=== PATIENT | female | born 1940 | race Caucasian/White ===

== ENCOUNTER → 2024-05-31 | Outpatient (CLI) | payer SELFPAY ==
[2024-05-31 12:17] LABS: INR 1.3 (<1.2); Partial Thromboplastin Time 31.6 sec (22.0-30.0); Prothrombin Time 13.5 sec (10.0-12.5)
[2024-05-31 15:06] LABS: HCT 47.9 % (37.2-46.3); HGB 15.6 g/dL (12.0-15.0); MCH 35.7 pg (27.0-32.0); MCHC 32.6 g/dL (32.0-37.0); MCV 109.6 FL (80.0-97.0); Mean Platelet Volume 10.5 FL (9.5-12.2); NRBC Per 100 WBC 0 X 10*3/uL (0.00-0.01); Platelet Count 474 X 10*3/uL (140-440); RBC 4.37 X 10*6/uL (4.10-5.20); RDW 14.1 % (11.5-14.5); WBC 7.98 X 10*3/uL (4.50-10.00)
[2024-05-31 15:34] LABS: ALT 9 U/L (8-44); AST 20 U/L (13-35); Albumin 4.2 g/dL (3.8-4.9); Alkaline Phosphatase 74 U/L (41-126); Blood Urea Nitrogen 20.6 mg/dL (9.0-27.0); Calcium 9.5 mg/dL (8.7-10.3); Carbon Dioxide 23.7 mmol/L (21.6-31.8); Chloride 106 mmol/L (96-109); Globulin 2.8 g/dL (1.6-3.3); Glucose 90 mg/dL (70-110); Potassium 4.4 mmol/L (3.5-5.5); Sodium 142 mmol/L (135-145); Total Bilirubin 0.9 mg/dL (0.3-1.2)
== END | disposition home or self-care (01) ==
LOC: LABPAT 11:14
PROVIDERS: ATTEND Orthopaedic Surgery
DX: Z01.812 Encounter for preprocedural laboratory examination (principal); M16.11 Unilateral primary osteoarthritis, right hip; Z22.322 Carrier or suspected carrier of Methicillin resistant Staphylococcus aureus
CPT/HCPCS: 80053; 85027; 85610; 85730; 86850; 86900; 86901; 87070

== ENCOUNTER 2024-06-08 07:22 | Day surgery (SDC) | payer MEDICARE ==
[~2024-06-08 07:22] MED LIST: TRANEXAMIC 1,000 MG/100ML-NACL 1,000 MG in SALINE 1 100ML.BAG IVPB PRN
[2024-06-08] MEDS: IV FLUID CONTINUATION 1,000 ML IV ONE (08:13)
[2024-06-08] MEDS: MELOXICAM 7.5 MG TAB PO PRN (08:25)
[2024-06-08] MEDS: ONDANSETRON 4 MG/2 ML VIAL IVP ONE (08:25)
[2024-06-08] MEDS: DEXAMETHASONE SOD PHOSPHATE 4 MG/ML 1 ML VIAL IV ONE (08:25)
[2024-06-08] MEDS: ACETAMINOPHEN TAB 500 MG TAB PO PRN (08:25)
[2024-06-08] MEDS: GABAPENTIN 300 MG CAP PO PRN (08:25)
[2024-06-08] MEDS: MIDAZOLAM 2 MG/2 ML VIAL IV PRN (08:37)
--- NOTE | 2024-06-08 08:46 | P.ANPRN ---
Procedure Note - Anesthesia - Nerve Block Performed Right Rogerio Single Time Out Performed: Yes Date of Procedure: 06/08/24 Procedure Start Time: 08:37 Procedure Stop Time: 08:42 Location of Patient: PreOp Indication: Acute Post-Operative Pain, Analgesia, Requested by Surgeon Sedation Type: Sedate with meaningful contact maintained Preparation: Sterile Prep Position: Supine Catheter: None Needle Types: Pajunk Needle Gauge: 21 Ultrasound used to visualize needle placement: Yes Ultrasound used to observe medication spread: Yes Injectate: 0.5% Ropivacaine (see comment for volume) (Ropiv 20ml) Blood Aspirated: No Pain Paresthesia on Injection Noted: No Resistance on Injection: Normal Image Stored and Saved: Yes Events: Uneventful and Well Tolerated
[2024-06-08] MEDS ORDERED: HYDROmorphone 0.5 MG/0.5 ML SYRINGE IVP PRN ×3 (09:05)
[2024-06-08] MEDS ORDERED: NALOXONE 0.4 MG/ML 1 ML VIAL IV PRN (09:05)
[2024-06-08] MEDS ORDERED: MAGNESIUM HYDROXIDE 2,400 MG/30 ML CUP PO PRN (09:05)
[2024-06-08] MEDS ORDERED: HYDROcodone/APAP 7.5-325MG 1 EACH TAB PO PRN (09:07)
[2024-06-08] MEDS ORDERED: GLYCOPYRROLATE 0.2 MG/ML 2 ML VIAL ONE (09:21)
[2024-06-08] MEDS ORDERED: LIDOCAINE 1% INJ 10MG/ML (20 ML MDV) ONE (09:21)
[2024-06-08] MEDS ORDERED: NEOSTIGMINE 1 MG/ML 10 ML VIAL ONE (09:21)
[2024-06-08] MEDS ORDERED: ROCURONIUM 10 MG/ML (5 ML VIAL) IV ONE (09:21)
[2024-06-08] MEDS ORDERED: fentaNYL (PF) 50 MCG/ML 2 ML AMP ONE (09:21)
[2024-06-08] MEDS ORDERED: ROPIVACAINE 5 MG/ML 30 ML VIAL ONE (09:21)
[2024-06-08] MEDS ORDERED: PROPOFOL 10 MG/ML 20 ML VIAL IV ONE (09:21)
[2024-06-08] MEDS ORDERED: SUCCINYLCHOLINE CHLORIDE 200 MG/10 ML VIAL IV ONE (09:21)
[2024-06-08] MEDS ORDERED: TRANEXAMIC 1,000 MG/100ML-NACL PREMIX BAG ONE (09:21)
[2024-06-08] MEDS ORDERED: PHENYLEPHRINE-0.9% NACL SYG 1,000 MCG/10 ML SYRINGE ONE (09:21)
[2024-06-08] MEDS: ceFAZolin 1,000 MG in SODIUM CHLORIDE 0.9% 1,000 ML IRRIGATION ONE (09:26)
[2024-06-08] MEDS: ROPIVACAINE 5 MG/ML 30 ML VIAL MISCELLANE ONE ×2 (09:32→10:36)
[2024-06-08] MEDS: LACTATED RINGERS 1,000 ML IV ONE (10:28)
--- NOTE | 2024-06-08 10:43 | P.OP ---
Date of Procedure: 06/08/24 Preoperative Diagnosis: Severe osteoarthritis right hip Postoperative Diagnosis: Severe osteoarthritis right hip Procedure(s) Performed: Right total hip arthroplasty with a direct anterior approach Implants: [employer] Polarstem standard size 7 with a collar [employer] R3, 3 hole hemispherical acetabular shell, 50 mm [employer] Reflection 6.5 mm cancellus screw, 20 mm 2 [employer] R3, XLPE 20 acetabular liner [employer] Oxinium femoral head 36 mm, +0 All components were press-fit. The articulation is Oxinium on polyethylene. Anesthesia: spinal Surgeon: Brock Gonsalves Telephone Ad Taker #1: Any Douglas Estimated Blood Loss (ml): 550 Pathology: none sent Condition: stable Disposition: PACU Indications for Procedure: After failure of conservative treatment we discussed the surgical and nonsu rgical treatment options at length. Patient wishes to proceed with a total hip arthroplasty with a direct anterior approach. Complications specific to this procedure were discussed at length, including but not limited to infection, leg length discrepancy, dislocation, nerve injury, and fracture. Covid-19 was also discussed at length with the patient, and they are aware of the current policies and procedures. The patient was given the option of delaying surgery, but they elect to proceed knowing these risks. Patient is aware of all these complications and informed consent was obtained Operative Findings: The operative findings are consistent with severe osteoarthritis of the right hip Description of Procedure: The patient was seen and evaluated in the preoperative area and the consent was reviewed. The operative site was marked with a skin marker. The patient verified the procedure and operative site. A MARISA block was placed by anesthesia in the preoperative area. The patient was then brought to the operating room and given preoperative antibiotics intravenously. 1 g of Tranexamic acid was also given intravenously. A spinal anesthetic was administered by the anesthesia department. The patient was then placed on the [place] table with the bony prominences well-padded. The hip area was then prepped with a ChloraPrep solution and draped in the usual sterile fashion. A universal timeout was then performed, which confirmed the patient's name, surgical site, ALLERGIES, and procedure being performed on the consent. Next the incision site was located at 1 cm distal and 4 cm lateral to the anterior superior iliac spine. The skin and subcutaneous tissues were sharply incised. Incision was carefully dissected down to the fascia overlying the tensor fascia stephanie muscle. This fascia was then incised in line with the muscle fibers. Care was taken to stay laterally in order to avoid injuring the lateral femoral cutaneous nerve. Next, using blunt finger dissection, the tensor fascia stephanie muscle was dissected off its investing fascia. The muscle was then carefully retracted laterally with a cobra retractor over the lateral neck of the femur. Next, the circumflex vessels were identified and cauterized using the Aquamantis device. The anterior hip capsule was then exposed. The capsule was then opened and an inverted T fashion. The retractors were then placed intracapsularly. The retractors were maintained intracapsular throughout the procedure. The proximal femur was then visualized. Fluoroscopic x-rays were then taken in order to evaluate the preoperative leg lengths. A small amount of traction was placed on the leg. The femoral neck was then osteotomized at the appropriate level above the lesser trochanter. A small wedge of bone was then removed from the remaining femoral head. Next, using a corkscrew the femoral head was removed from the acetabulum. On gross visual inspection, the femoral head had complete loss of articular cartilage and multiple periarticular osteophytes. The femoral head was then measured. Attention was then turned to the acetabulum. The acetabulum was exposed and any remaining labrum was excised. Sequential reaming of the acetabulum was performed using fluoroscopic guidance until there was a good bed of bleeding cancellus bone. When the appropriate size was reached, a trial was then placed. The position and fit of the trial was checked with fluoroscopy. The trial was then removed. Then, using fluoroscopic guidance, the final implant was impacted at 20 of anteversion and 40 of abduction, and fully seated in the acetabulum. 2 screws were then placed in the acetabulum. Again fluoroscopy was used to check position of the screws. Next, the liner was then impacted, with a 20 elevated liner located in the anterior superior quadrant. Component locking was confirmed. Attention was then directed to the femur. With the aid of the [place] table, the femur was externally rotated to approximately 130, extended, and adducted under the opposite leg. A side hook was then placed under the proximal femur, and the side hook elevator was used to elevate the proximal femur while releasing the capsule. Retractors were then placed. A capsular release was performed, as well as a release of the conjoined tendon, which afforded excellent v isualization of the proximal femur. Next, a box osteotome was used to lateralize the proximal femur. A shorthand reporter was then used to locate the femoral canal. Sequential broaching was then performed with appropriate size which afforded excellent fixation in the proximal femur. A trial was then placed with appropriate head and neck, and the hip was gently reduced with the aid of the [place] table. Fluoroscopy was then used to check position of the components, as well as to evaluate the leg lengths and offset. The leg lengths and offset were measured as closely as possible to ensure stability of the hip. The hip was then gently dislocated and the trials were then removed. Final implants were then impacted and the hip was again reduced. Final fluoroscopic x-rays confirmed that the components were in anatomic position. The leg lengths and offset were measured and were found to coincide with the trial measurements. The hip was also taken through range of motion, and found to be stable. The hip was then copiously irrigated with antibiotic solution with pulsatile lavage. The hip was then irrigated with Irrisept solution. The soft tissues were then injected with a ropivacaine solution. A second dose of 1 g of Tranexamic acid was also given intravenously. The fascia was then closed with 2-0 strata fix suture. The subcutaneous tissue was closed with 3-0 Vicryl. The subcuticular tissue was closed with 3-0 strata fix suture. The skin was then closed with Exofin skin glue. After the glue and dried, and Optifoam silver impregnated dressing was applied. The patient was t hen transferred to the recovery room in stable condition. The clinical trials assistant JESUS Macdonald was required due to the complexity of surgery, and the need for skilled maintenance assistant for positioning, draping, exposure, retraction, and closure of the wound.
[2024-06-08] MEDS: HYDROmorphone 0.5 MG/0.5 ML SYRINGE IVP PRN (11:20)
--- NOTE | 2024-06-08 11:57 | FL ---
EXAMINATION TYPE: FL guidance operating room, XR Hip Limited RT Intraoperative/procedural fluoroscopi c services were provided. Total fluoroscopy time is 37 seconds with a total of 3 submitted images to PACS. Please see the operative/procedural note for further details. DAP: 1.3795 Gycm2
--- NOTE | 2024-06-08 11:58 | XR ---
EXAMINATION TYPE: XR Hip Limited RT DATE OF EXAM: 06/08/2024 11:28 AM CLINICAL INDICATION:Female, 83 years old with history of Status post hip surgery, assess surgical ali gnment; [facility] COMPARISON: None. TECHNIQUE: XR Hip Limited RT; hip was examined in the frontal projections FINDINGS: Post arthroplasty changes, hardware is intact, alignment is appropriate. No evidence of fra cture. Postoperative changes of the soft tissues with subcutaneous gas. No evidence of any acute osse ous pathology or joint dislocation. IMPRESSION: Hip arthroplasty with hardware intact and in appropriate alignment. No acute fracture.
[2024-06-08] MEDS: LACTATED RINGERS 1,000 ML IV SCH (15:04)
[2024-06-08] MEDS: SODIUM CHLORIDE 0.9% 1,000 ML IV SCH (15:22)
[2024-06-08] MEDS: ONDANSETRON 4 MG/2 ML VIAL IVP PRN (15:49)
[2024-06-08] MEDS: ATORVASTATIN 10 MG TAB PO SCH (21:04)
[2024-06-08] MEDS: SENNOSIDES-DOCUSATE SODIUM 1 EACH TAB PO SCH (21:04)
[2024-06-08] MEDS: atenoloL 50 MG TAB PO SCH (21:04)
--- NOTE | 2024-06-08 23:58 | P.CONS ---
History of Present Illness - Reason for Consult Consult date: 06/08/24 Medical management Requesting physician: Brock Gonsalves - Chief Complaint Right total hip arthroplasty - History of Present Illness HISTORY OF PRESENT ILLNESS: 83-year-old with active medical history of polycythemia, hypertension, hyperlipidemia, osteoporosis, hypothyroidism, low vitamin D, paroxysmal A-fib, recurrent urinary tract infection, and mild palpitation. Patient been having significant pain and discomfort irritation and limping for the last 2 years become much worse had tried conservative management last year which had helped for short period of time continue to have significant pain and discomfort. Was seen Dr. Gonsalves and plan elective anterior approach right total hip arthroplasty which was done today successfully with no major complication patient has slight delayed reaction to conscious sedation otherwise pain is well-controlled when seen over 4 hours after surgery continue to have slight slurred speech and mild confusion only she is not combative otherwise stable. REVIEW OF SYSTEMS: CONSTITUTIONAL: Well-developed no acute respiratory distress. EYES: No icterus sclerae, no conjunctivitis. EARS, NOSE, MOUTH, THROAT, and FACE: No sore throat, lymphadenopathy, carotid bruits or deformity. RESPIRATORY: No SOB cough or wheezes. CARDIOVASCULAR: No CP, Palpitation, PND, Orthopnea, or angina. Positive A-fib GASTROINTESTINAL: No Abd pain, Nausea or vomiting, no Diarrhea or constipation, No GI Bleed, no distention or masses. GENITOURINARY: Negative for Hematuria or UTI, no kidney stones. INTEGUMENT/BREAST: Negative for any muscular injury with mild osteoarthritis.. Skin cancer on the left leg. HEMATOLOGIC/LYMPHATIC: Negative for bleed or purpura. MUSCULOSKELTAL: Negative for Myalgia or arthralgia. NEURLOGICAL: No LOC, Sz or syncope, blurred vision dizziness or abnormality.. BEHAVIORAL/PSYCH: Negative. ENDOCRINE: Negative. PHYSICAL EXAMINATION: General Appearance: Alert, cooperative, no distress, appears stated age. Neck HEENT: Supple, no lymphadenopathy, no thyroid enlargement, no carotid bruits. Lungs: Clear to auscultation without crackles or wheezes no rhonchi, no deformity. Chest Wall: Chest wall normal expansion with deep inspiration no tenderness and no deformity was found on exam, no costochondral pain or discomfort. Heart: Irregular rate and rhythm, S1, S2 positive S3 positive systolic murmur. Back: Symmetric, no curvature, ROM normal, no CVA tenderness. Abdomen: Soft, non-tender, bowel sounds active all four quadrants, no masses, no organomegaly. Extremities: Right hip anterior approach incision with no bleeding hemorrhage induration or redness no hematoma. Pulses: 2+ and symmetric. Skin: Skin color, texture, tugor normal, no rashes or lesions. Neurologic: Alert oriented x3 cranial nerves II through XII intact, no motor deficit, no abnormal balance or gait. ASSESSMENT AND PLAN: _Right total hip arthroplasty: Postsurgery resume all home meds, GI, DVT and pulmonary prophylaxis protocol. Watch patient hemodynamic status carefully and control pain and with her confusion to use help with any attempt but patient need to be out of bed. _History of polycythemia: Post phlebotomy 3 times a year and remain on hydroxyurea. _Paroxysmal atrial fibrillation: Remain on Xarelto has been on atenolol and nifedipine resume medication Xarelto will be resumed tomorrow at 20 mg daily. _Chronic kidney disease: Mostly stage II, continue hydration repeat CMP with blood work tomorrow. _Hypothyroidism: Resume levothyroxine 100 mcg daily. _Hyperlipidemia: Continue simvastatin 20 mg a day. _Anticoagulation: Remain on Xarelto 20 mg a day. _Vitamin D deficiency: Continue calcium and vitamin D more regular basis. _Osteoporosis: Remain on alendronate 70 mg weekly to start calcium vitamin D. _Skin cancer most likely basal cell carcinoma of the left leg arrangement to see dermatology for resection in the next few months. _GERD/GI prophylaxis: Continue Pepcid 20 mg daily. _DVT prophylaxis: Patient already on Xarelto. CODE STATUS: Full code. Dr. Gonsalves thank you much for the consult if I can be any further help to please let me know. Past Medical History Past Medical History: Atrial Fibrillation, Cancer, Hyperlipidemia, Hypertension, Skin Disorder, Thyroid Disorder Additional Past Medical History / Comment(s): skin cancer face 1998, basal cell back, bilat. leg skin cancer, polycythemia vera 2012, hypothyroidism - took oral radiation pill 2007 to cease thyroid function, a fib since 2021 rate controlled History of Any Multi-Drug Resistant Organisms: None Reported Additional Past Surgical History / Comment(s): bilat. CTR, skin cancer removal face, back, bilat. legs, bilat.cataracts, colonoscopy, ganglion cyst removal Lt. foot, Total right hip Additional Past Anesthesia/Blood Transfusion Reaction / Comm: 1998 - "paralyzed" during facial skin cancer removal Past Psychological History: No Psychological Hx Reported Smoking Status: Never smoker Past Alcohol Use History: None Reported Past Drug Use History: None Reported - Past Family History Mother Family Medical History: Coronary Artery Disease (CAD), Hypertension, Myocardial Infarction (NE) Father Family Medical History: Coronary Artery Disease (CAD), Hypertension, Myocardial Infarction (NE) Medications and Allergies Home Medications Medication Instructions Recorded Confirmed Type Alendronate Sodium 70 mg PO WEEKLY 06/02/24 06/08/24 History Benazepril HCl [Lotensin] 40 mg PO QAM 06/02/24 06/08/24 History Cholecalciferol (Vitamin D3) 1 tab PO Q14D 06/02/24 06/08/24 History [Vitamin D3 (1250 Mcg = 50,000 Iu)] Hydroxyurea [Hydrea] 500 mg PO QAM 06/02/24 06/08/24 History Levothyroxine Sodium [Synthroid] 100 mcg PO MOTUWETHFRSA 06/02/24 06/08/24 History NIFEdipine XL [Procardia Xl] 30 mg PO QAM 06/02/24 06/08/24 History Potassium Chloride 10 meq PO QAM 06/02/24 06/08/24 History Rivaroxaban [Xarelto] 20 mg PO HS 06/02/24 06/08/24 History Simvastatin [Zocor] 20 mg PO HS 06/02/24 06/08/24 History atenoloL [Tenormin] 50 mg PO BID 06/02/24 06/08/24 History HYDROcodone/APAP 7.5-325MG [[place] 1 - 2 tab PO Q6H PRN #32 tab 06/08/24 Rx 7.5-325] Sennosides [Senokot] 2 tab PO DAILY PRN #60 tablet 06/08/24 Rx Allergies Allergy/AdvReac Type Severity Reaction Status Date / Time propoxyphene [From Darvon] Allergy Hallucinati Verified 06/08/24 08:02 ons Sulfa (Sulfonamide Allergy Rash/Hives Verified 06/08/24 08:02 Antibiotics) adhesive tape AdvReac Rash/Hives Verified 06/08/24 08:02 Physical Exam Vitals: Vital Signs Temp Pulse Pulse Resp BP Pulse Ox 06/08/24 15:25 97.5 F L 62 18 124/79 96 06/08/24 14:45 68 15 103/59 99 06/08/24 14:15 67 16 105/64 97 06/08/24 13:45 61 16 102/73 98 06/08/24 13:15 65 17 104/64 100 06/08/24 12:45 61 16 98/64 100 06/08/24 12:15 75 16 97/60 100 06/08/24 12:00 67 17 99/54 100 06/08/24 11:45 66 15 102/62 99 06/08/24 11:30 74 21 104/66 99 06/08/24 11:15 67 16 105/68 100 06/08/24 11:06 97.4 F L 95 15 124/74 100 06/08/24 08:47 67 16 152/89 99 06/08/24 08:14 97.4 F L 73 16 160/86 98 Intake and Output 06/08/24 06/08/24 06/08/24 06:59 14:59 22:59 Intake Total 1051 Output Total 550 Balance 501 Intake: IV 1051 Output: Estimated Blood Loss 550 Other: Weight 64.3 kg
[2024-06-09 01:58] VITALS: PULSE 62
[2024-06-09] MEDS: HYDROcodone/APAP 7.5-325MG 1 EACH TAB PO PRN (05:04)
[2024-06-09] MEDS: LEVOTHYROXINE 100 MCG TAB PO SCH (06:37)
[2024-06-09] MEDS: POTASSIUM CHLORIDE ER 10 MEQ TAB.ER.PRT PO SCH (07:30)
[2024-06-09] MEDS: FAMOTIDINE 20 MG TAB PO SCH (07:30)
[2024-06-09] MEDS: lisinopriL 20 MG TAB PO SCH (07:31)
[2024-06-09] MEDS: ASPIRIN 81 MG PO SCH (07:31)
[2024-06-09] MEDS: NIFEdipine XL 30 MG TAB.ER.24 PO SCH (07:32)
[2024-06-09] MEDS: HYDROXYUREA 500 MG CAP PO SCH (07:33)
[2024-06-09 07:57] VITALS: BP 116/73; RESP 20; TEMP 98.4
[2024-06-09 08:52] LABS: Basophils # (A) 0.04 X 10*3/uL (0.00-0.10); Basophils % (A) 0.4 %; Eosinophils # (A) 0.01 X 10*3/uL (0.04-0.35); Eosinophils % (A) 0.1 %; HCT 31.9 % (37.2-46.3); HGB 10.7 g/dL (12.0-15.0); Lymphocytes # (A) 1.28 X 10*3/uL (0.90-5.00); Lymphocytes % (A) 11.5 %; MCH 36.6 pg (27.0-32.0); MCHC 33.5 g/dL (32.0-37.0); MCV 109.2 FL (80.0-97.0); Mean Platelet Volume 11.1 FL (9.5-12.2); Monocytes # (A) 1.14 X 10*3/uL (0.20-1.00); Monocytes % (A) 10.3 %; NRBC Per 100 WBC 0 X 10*3/uL (0.00-0.01); Neutrophils # (A) 8.58 X 10*3/uL (1.80-7.70); Neutrophils % (A) 77.2 %; Platelet Count 238 X 10*3/uL (140-440); RBC 2.92 X 10*6/uL (4.10-5.20); RDW 14.6 % (11.5-14.5); WBC 11.11 X 10*3/uL (4.50-10.00)
--- NOTE | 2024-06-09 09:57 | P.DS ---
Providers Expected date of discharge: 06/09/24 Attending physician: Brock Gonsalves Consults: 06/08/24 09:05 Consult Physician Routine Consulting Provider: Krishna Rocha Reason/Comments: medical management Do you want consulting provider notified?: Yes Primary care physician: Krishna Rocha - Discharge Diagnosis(es) (1) Osteoarthritis of right hip Current Visit: Yes Status: Acute (2) S/P total hip arthroplasty Current Visit: Yes Status: Acute Hospital Course: This is an 83-year-old female with known history of degenerative arthritis of the right hip. The patient presented for evaluation as an outpatient. After discussion and consideration patient elects to proceed with total hip arthroplasty. The patient is seen preoperatively by Dr. Gonsalves and medically cleared for surgery by their primary care physician. Patient is admitted to [facility] on 06/08/2024 for total hip arthroplasty. The procedure is performed without complication or sequelae. The patient is doing well postoperatively. Labs and vital signs are stable on day of discharge. On day of discharge patient's hip incision is healing well. There is minimal erythema. There is no drainage noted at this time. There is minimal soft tissue swelling to the hip and thigh. Patient has full foot and ankle motion without difficulty or pain. Calf is soft and nontender to palpation. Neurovascular status to the right lower extremity is intact. Patient is d ischarged home in good condition. Osteoarthritis right hip please see med rec for accurate list of home medications. Plan - Discharge Summary Discharge Rx Participant: Yes New Discharge Prescriptions: New HYDROcodone/APAP 7.5-325MG [[place] 7.5-325] 1 - 2 tab PO Q6H PRN #32 tab PRN Reason: Pain Sennosides [Senokot] 2 tab PO DAILY PRN #60 tablet PRN Reason: Constipation No Action Simvastatin [Zocor] 20 mg PO HS Rivaroxaban [Xarelto] 20 mg PO HS Levothyroxine Sodium [Synthroid] 100 mcg PO MOTUWETHFRSA Hydroxyurea [Hydrea] 500 mg PO QAM Alendronate Sodium 70 mg PO WEEKLY atenoloL [Tenormin] 50 mg PO BID Potassium Chloride 10 meq PO QAM NIFEdipine XL [Procardia Xl] 30 mg PO QAM Benazepril HCl [Lotensin] 40 mg PO QAM Cholecalciferol (Vitamin D3) [Vitamin D3 (1250 Mcg = 50,000 Iu)] 1 tab PO Q14D Discharge Medication List Alendronate Sodium 70 mg PO WEEKLY 06/02/24 [History] Benazepril HCl [Lotensin] 40 mg PO QAM 06/02/24 [History] Cholecalciferol (Vitamin D3) [Vitamin D3 (1250 Mcg = 50,000 Iu)] 1 tab PO Q14D 06/02/24 [History] Hydroxyurea [Hydrea] 500 mg PO QAM 06/02/24 [History] Levothyroxine Sodium [Synthroid] 100 mcg PO MOTUWETHFRSA 06/02/24 [History] NIFEdipine XL [Procardia Xl] 30 mg PO QAM 06/02/24 [History] Potassium Chloride 10 meq PO QAM 06/02/24 [History] Rivaroxaban [Xarelto] 20 mg PO HS 06/02/24 [History] Simvastatin [Zocor] 20 mg PO HS 06/02/24 [History] atenoloL [Tenormin] 50 mg PO BID 06/02/24 [History] HYDROcodone/APAP 7.5-325MG [[place] 7.5-325] 1 - 2 tab PO Q6H PRN #32 tab 06/08/24 [Rx] Sennosides [Senokot] 2 tab PO DAILY PRN #60 tablet 06/08/24 [Rx] Follow up Appointment(s)/Referral(s): Brock Gonsalves DO [Doctor of Osteopathic Medicine] - 2 Weeks Activity/Diet/Wound Care/Special Instructions: Weightbearing as tolerated with walker. Leave dressing intact. Dressing may be removed by home care nurse or by patient in 7 days. Then change dressing twice daily until follow up. May shower with initial dressing intact and after removal. If dressing become saturated, please remove. Please resume Xarelto and aspirin. Recommend use of compression stockings daily until follow up to help prevent swelling and blood clots. May remove at night before sleeping. Please follow-up with [facility] in 2 weeks and call with any questions or concerns, . Discharge Disposition: HOME WITH HOME HEALTH SERVICES
[2024-06-09] MEDS ORDERED: RIVAROXABAN 20 MG TAB PO SCH (17:30)
[2024-06-18] MEDS ORDERED: CHOLECALCIFEROL 125 MCG (5000 IU) TABLET PO SCH (09:00)
== END 2024-06-09 12:45 | disposition home health service (06) ==
LOC: ORWHC2ENDO 07:22 → 4SSUR 10:59 → ORWHC2ENDO 06-09 12:45
PROVIDERS: ATTEND Orthopaedic Surgery
DX: M16.11 Unilateral primary osteoarthritis, right hip (principal); G89.18 Other acute postprocedural pain; I12.9 Hypertensive chronic kidney disease with stage 1 through stage 4 chronic kidney disease, or unspecified chronic kidney disease; N18.2 Chronic kidney disease, stage 2 (mild); E78.5 Hyperlipidemia, unspecified; E03.9 Hypothyroidism, unspecified; I48.0 Paroxysmal atrial fibrillation; E55.9 Vitamin D deficiency, unspecified; M81.0 Age-related osteoporosis without current pathological fracture; Z79.01 Long term (current) use of anticoagulants; Z79.890 Hormone replacement therapy; Z79.899 Other long term (current) drug therapy; Z85.828 Personal history of other malignant neoplasm of skin; Z88.2 Allergy status to sulfonamides; Z88.8 Allergy status to other drugs, medicaments and biological substances
CPT/HCPCS: 97161; 64447; 85025; 73501; 27130; C1776; S0176; J2250; J0330; J1100; J2710; J0690 ×3; J2405 ×2; J2001; J3010; J2795; J2704; J1170; J2371; J1596

== ENCOUNTER 2025-06-27 23:32 | Emergency (ER) | payer MEDICARE ==
[2025-06-27 23:52] VITALS: RESP 18; TEMP 97.6
--- NOTE | 2025-06-27 23:52 | ED ---
Extremity Problem HPI - General Chief complaint: Extremity Injury, Lower Stated complaint: left leg swollen Time Seen by Provider: 06/27/25 23:49 Source: patient, RN notes reviewed, old records reviewed Mode of arrival: wheelchair Limitations: no limitations - History of Present Illness Initial comments: This is an 84-year-old female to ER for leg pain left-sided leg pain worse after dentist appointment where she had tooth extraction today. Patient has significant pain in the left hip left thigh which is chronic. Patient is able to walk and ambulate pain is better when she leans forward he has a chronic effusion patient seen multiple providers and pain management symptoms for MD Complaint: extremity pain, extremity swelling, joint pain -: days(s) Location: left, lower extremity Radiation: proximal, distal Severity scale (1-10): 7 Quality: stabbing, aching Consistency: intermittent Improves with: nothing Worsens with: weight bearing Associated Symptoms: denies other symptoms - Related Data Home Medications Medication Instructions Recorded Confirmed Alendronate Sodium 70 mg PO FR 06/02/24 04/23/25 Benazepril HCl [Lotensin] 40 mg PO DAILY 06/02/24 04/23/25 Cholecalciferol (Vitamin D3) 1,250 mcg PO Q14D 06/02/24 04/23/25 [Vitamin D3 (1250 Mcg = 50,000 Iu)] Hydroxyurea [Hydrea] 500 mg PO DAILY 06/02/24 04/23/25 Levothyroxine Sodium [Synthroid] 100 mcg PO MOTUWETHFRSA 06/02/24 04/23/25 NIFEdipine XL [Procardia XL] 30 mg PO DAILY 06/02/24 04/23/25 Potassium Chloride 10 meq PO DAILY 06/02/24 04/23/25 Rivaroxaban [Xarelto] 20 mg PO HS 06/02/24 04/23/25 Simvastatin [Zocor] 20 mg PO HS 06/02/24 04/23/25 atenoloL [Tenormin] 50 mg PO BID 06/02/24 04/23/25 Aspirin EC [Ecotrin Low Dose] 81 mg PO DAILY 04/23/25 04/23/25 Levothyroxine Sodium [Synthroid] 50 mcg PO [place] 04/23/25 04/23/25 Previous Rx's Medication Instructions Recorded cefuroxime axetiL [Ceftin] 500 mg PO BID #14 tab 04/26/25 Allergies Allergy/AdvReac Type Severity Reaction Status Date / Time propoxyphene [From Darvon] Allergy Hallucinati Verified 06/27/25 23:52 ons Sulfa (Sulfonamide Allergy Rash/Hives Verified 06/27/25 23:52 Antibiotics) adhesive tape AdvReac Rash/Hives Verified 06/27/25 23:52 Review of Systems ROS Statement: Those systems with pertinent positive or pertinent negative responses have been documented in the HPI. ROS Other: All systems not noted in ROS Statement are negative. Past Medical History Past Medical History: Atrial Fibrillation, Hyperlipidemia, Hypertension, Osteoarthritis (OA), Thyroid Disorder Additional Past Medical History / Comment(s): polycythemia vera History of Any Multi-Drug Resistant Organisms: None Reported Additional Past Surgical History / Comment(s): bilat. CTR, skin cancer removal face, back, bilat. legs, bilat.cataracts, colonoscopy, ganglion cyst removal Lt. foot, Total right hip Past Psychological History: No Psychological Hx Reported Smoking Status: Never smoker Past Alcohol Use History: None Reported Past Drug Use History: None Reported General Exam Limitations: no limitations General appearance: alert, in no apparent distress Head exam: Present: atraumatic, normocephalic, normal inspection Eye exam: Present: normal appearance, PERRL, EOMI. Absent: scleral icterus, conjunctival injection, periorbital swelling ENT exam: Present: normal exam, mucous membranes moist Neck exam: Present: normal inspection. Absent: tenderness, meningismus, lymphadenopathy Respiratory exam: Present: normal lung sounds bilaterally. Absent: respiratory distress, wheezes, rales, rhonchi, stridor Cardiovascular Exam: Present: regular rate, normal rhythm, normal heart sounds. Absent: systolic murmur, diastolic murmur, rubs, gallop, clicks GI/Abdominal exam: Present: soft, normal bowel sounds. Absent: distended, tenderness, guarding, rebound, rigid Extremities exam: Present: normal inspection, full ROM, normal capillary refill. Absent: tenderness, pedal edema, joint swelling, calf tenderness Back exam: Present: normal inspection Neurological exam: Present: alert, oriented X3, CN II-XII intact Psychiatric exam: Present: normal affect, normal mood Skin exam: Present: warm, dry, intact, normal color. Absent: rash Course Vital Signs 06/27/25 23:46 Temperature 97.6 F Pulse Rate 66 Respiratory 18 Rate Blood Pressure 117/68 O2 Sat by Pulse 99 Oximetry - Reevaluation(s) Reevaluation #1: 06/28/25 00:10 Medical records reviewed Reevaluation #2: 06/28/25 00:10 Patient symptoms improved Reevaluation #3: 06/28/25 00:10 Patient informed of results questions answered Reevaluation #4: Was pt. sent in by a medical professional or institution ([facility], CERAMIC SAW TENDER, urgent care, hospital, or custodial...) When possible be specific @ -no Did you speak to anyone other than the patient for history (EMS, parent, family, police, friend...)? What history was obtained from this source @ -no Did you review nursing and triage notes (agree or disagree)? Why? @ -agree Are old charts reviewed (outside hosp., previous admission, EMS record, old EKG, old radiological studies, urgent care reports/EKG's, custodial records)? Report findings @ -yes Differential Diagnosis (chest pain, altered mental status, abdominal pain women, abdominal pain men, vaginal bleeding, weakness, fever, dyspnea, syncope, headache, dizziness, GI bleed, back pain, seizure, CVA, palpatations, mental health, musculoskeletal)? @ -prior EKG interpreted by me (3pts min.). @ -yes X-rays interpreted by me (1pt min.). @ -yes negative for acute disease CT interpreted by me (1pt min.). @ -no U/S interpreted by me (1pt. min.). @ -no What testing was considered but not performed or refused? (CT, X-rays, U/S, labs)? Why? @ -none What meds were considered but not given or refused? Why? @ -none Did you discuss the management of the patient with other professionals (professionals i.e. [facility], CERAMIC SAW TENDER, lab, RT, psych nurse, social service coordinator, curtains and draperies salesperson, teacher, radio division officer, transplant case manager)? Give summary @ -no Was smoking cessation discussed for >3mins.? @ -no Was critical care preformed (if so, how long)? @ -no Were there social determinants of health that impacted care today? How? (Homelessness, low income, unemployed, alcoholism, drug addiction, transportation, low edu. Level, literacy, decrease access to med. care, senior care, rehab)? @ -none Was there de-escalation of care discussed even if they declined (Discuss DNR or withdrawal of care, Hospice)? DNR status @ -no What co-morbidities impacted this encounter? (DM, HTN, Smoking, COPD, CAD, Cancer, CVA, ARF, Chemo, Hep., AIDS, mental health diagnosis, sleep apnea, morbid obesity)? @ -none Was patient admitted / discharged? Hospital course, mention meds given and route, prescriptions, significant lab abnormalities, going to OR and other pert inent info. @ - Undiagnosed new problem with uncertain prognosis? @ -no Drug Therapy requiring intensive monitoring for toxicity (Heparin, Nitro, Insulin, Cardizem)? @ -no Were any procedures done? @ -no Diagnosis/symptom? @ - Acute, or Chronic, or Acute on Chronic? @ -Acute Uncomplicated (without systemic symptoms) or Complicated (systemic symptoms)? @ -Complicated Side effects of treatment? @ -no Exacerbation, Progression, or Severe Exacerbation? @ -exacerbation Poses a threat to life or bodily function? How? (Chest pain, [place], [place], pneumonia, PE, COPD, DKA, ARF, appy, cholecystitis, CVA, Diverticulitis, Homicidal, Suicidal, threat to staff... and all critical care pts) @ -yes Procedures - Bursa Procedures Consent Obtained: verbal consent Indications: injection only Side of Body: left Site of Procedure: trochanteric bursa XRAY Obtained: none Lidocaine Added to Medication: Yes Is Patient Diabetic?: informed patient Patient Tolerated Procedure: well Complications: none Medical Decision Making - Medical Decision Making 84 female to the ER with left leg pain left hip pain bursitis on exam, patient is given lidocaine injection and discharged home Disposition Clinical Impression: Hip bursitis, left Disposition: HOME SELF-CARE Condition: Good Instructions (If sedation given, give patient instructions): Hip Bursitis (ED), Leg Pain (ED) Is patient prescribed a controlled substance at d/c from ED?: No Referrals: Krishna Rocha MD [Primary Care Provider] - 1-2 days Time of Disposition: 23:55
[2025-06-28 00:33] VITALS: BP 116/80; PULSE 62
[2025-06-28] MEDS: traMADol 50 MG TAB PO STA (00:33)
[2025-06-28] MEDS: traMADol 50 MG STARTER PACK TAB BTL PO STA (00:34)
== END 2025-06-28 00:36 | disposition home or self-care (01) ==
LOC: EC 23:32
DX: M70.72 Other bursitis of hip, left hip (principal); Z91.048 Other nonmedicinal substance allergy status; Z88.2 Allergy status to sulfonamides; Z88.8 Allergy status to other drugs, medicaments and biological substances
CPT/HCPCS: 20610; 99283

== ENCOUNTER 2025-06-28 09:13 | Emergency (ER) | payer MEDICARE ==
[2025-06-28 09:16] VITALS: RESP 18
--- NOTE | 2025-06-28 10:26 | ED ---
General Adult HPI - General Chief complaint: Recheck/Abnormal Lab/Rx Stated complaint: Hip Pain Time Seen by Provider: 06/28/25 09:27 Source: patient, EMS Mode of arrival: EMS Limitations: no limitations - History of Present Illness Initial comments: Dictation was produced using [employer] dictation software. please excuse any grammatical, word or spelling errors. Chief Complaint: 84-year-old female with atraumatic left hip pain History of Present Illness: Patient is a 84-year-old female has some degree of mild arthritis to the left hip. For the last several days she has been having worsening left hip pain. Was seen here in the emergency department given tramadol starter pack. States that medications not really helping she still has significant pain. Pain is so severe that she is unable to walk or bear weight on that left hip. No other symptoms at this time. Denies any fever chills or night sweats The ROS documented in this emergency department record has been reviewed and confirmed by me. Those systems with pertinent positive or negative responses have been documented in the HPI. All other systems are other negative and/or noncontributory. - Related Data Home Medications Medication Instructions Recorded Confirmed Alendronate Sodium 70 mg PO FR 06/02/24 04/23/25 Benazepril HCl [Lotensin] 40 mg PO DAILY 06/02/24 04/23/25 Cholecalciferol (Vitamin D3) 1,250 mcg PO Q14D 06/02/24 04/23/25 [Vitamin D3 (1250 Mcg = 50,000 Iu)] Hydroxyurea [Hydrea] 500 mg PO DAILY 06/02/24 04/23/25 Levothyroxine Sodium [Synthroid] 100 mcg PO MOTUWETHFRSA 06/02/24 04/23/25 NIFEdipine XL [Procardia XL] 30 mg PO DAILY 06/02/24 04/23/25 Potassium Chloride 10 meq PO DAILY 06/02/24 04/23/25 Rivaroxaban [Xarelto] 20 mg PO HS 06/02/24 04/23/25 Simvastatin [Zocor] 20 mg PO HS 06/02/24 04/23/25 atenoloL [Tenormin] 50 mg PO BID 06/02/24 04/23/25 Aspirin EC [Ecotrin Low Dose] 81 mg PO DAILY 04/23/25 04/23/25 Levothyroxine Sodium [Synthroid] 50 mcg PO [place] 04/23/25 04/23/25 Previous Rx's Medication Instructions Recorded cefuroxime axetiL [Ceftin] 500 mg PO BID #14 tab 04/26/25 oxyCODONE-APAP 10-325MG [Percocet 1 tab PO Q4HR PRN 3 Days #18 tab 06/28/25 10-325 mg] Allergies Allergy/AdvReac Type Severity Reaction Status Date / Time propoxyphene [From Darvon] Allergy Hallucinati Verified 06/28/25 09:16 ons Sulfa (Sulfonamide Allergy Rash/Hives Verified 06/28/25 09:16 Antibiotics) adhesive tape AdvReac Rash/Hives Verified 06/28/25 09:16 Review of Systems ROS Statement: Those systems with pertinent positive or pertinent negative responses have been documented in the HPI. ROS Other: All systems not noted in ROS Statement are negative. Past Medical History Past Medical History: Atrial Fibrillation, Hyperlipidemia, Hypertension, Osteoarthritis (OA), Thyroid Disorder Additional Past Medical History / Comment(s): polycythemia vera History of Any Multi-Drug Resistant Organisms: None Reported Additional Past Surgical History / Comment(s): bilat. CTR, skin cancer removal face, back, bilat. legs, bilat.cataracts, colonoscopy, ganglion cyst removal Lt. foot, Total right hip Past Psychological History: No Psychological Hx Reported Smoking Status: Never smoker Past Alcohol Use History: None Reported Past Drug Use History: None Reported General Exam - General Exam Comments Initial Comments: PHYSICAL EXAM: General Impression: Alert and oriented x3, not in acute distress HEENT: Normocephalic atraumatic, extra-ocular movements intact, pupils equal and reactive to light bilaterally, mucous membranes moist. Cardiovascular: Heart regular rate and rhythm Chest: Able to complete full sentences, no retractions, no tachypnea Abdomen: abdomen soft, non-tender, non-distended, no organomegaly Musculoskeletal: Pulses present and equal in all extremities, no peripheral edema, pain with manipulation at the left hip Motor: no focal deficits noted Neurological: CN II-XII grossly intact, no focal motor or sensory deficits noted Skin: Intact with no visualized rashes Psych: Normal affect and mood Limitations: no limitations Course Vital Signs 06/28/25 06/28/25 09:14 10:51 Temperature 96.9 F L 98 F Pulse Rate 78 84 Respiratory 18 18 Rate Blood Pressure 137/93 150/94 O2 Sat by Pulse 99 100 Oximetry Medical Decision Making - Medical Decision Making Was pt. sent in by a medical professional or institution (, [facility], RESEARCH PHYSIOLOGIST, urgent care, hospital, or custodial...) When possible be specific @ -No Did you speak to anyone other than the patient for history (EMS, parent, family, police, friend...)? What history was obtained from this source @ -No Did you review nursing and triage notes (agree or disagree)? Why? @ -I reviewed and agree with nursing and triage notes Were old charts reviewed (outside hosp., previous admission, EMS record, old EKG, old radiological studies, urgent care reports/EKG's, custodial records)? Report findings @ -No old charts were reviewed Differential Diagnosis (chest pain, altered mental status, abdominal pain women, abdominal pain men, vaginal bleeding, musculoskeletal, weakness, fever, dyspnea, syncope, headache, dizziness, GI bleed, back pain, seizure, CVA, palpatations, mental health)? @ -Hip pain, septic arthritis, hip strain EKG interpreted by me (3pts min.). @ -None done X-rays interpreted by me (1pt min.). @ -Left hip x-ray shows left hip arthritis but the with acetabular impingement CT interpreted by me (1pt min.). @ -None done U/S interpreted by me (1pt. min.). @ -None done What testing was considered but not performed or refused? (CT, X-rays, U/S, labs)? Why? @ -None What meds were considered but not given or refused? Why? @ -None Was smoking cessation discussed for >3mins.? @ -No Were there social determinants of health that impacted care today? How? (Homelessness, low income, unemployed, alcoholism, drug addiction, transportation, low edu. Level, literacy, decrease access to med. care, long term, r ehab)? @ -No Was there de-escalation of care discussed even if they declined (Discuss DNR or withdrawal of care, Hospice)? DNR status @ -No What co-morbidities impacted this encounter? (DM, HTN, Smoking, COPD, CAD, Cancer, CVA, ARF, Chemo, Hep., AIDS, mental health diagnosis, sleep apnea, morbid obesity)? @ -None Was patient admitted / discharged? Hospital course, mention meds given and route, prescriptions, significant lab abnormalities, going to OR and other pertinent info. @ -84-year-old female atraumatic hip pain. Patient has femoral hip impingement x-ray shows arthritis. Discharge after Decadron IM shot given Rx for analgesia. Told to follow-up with her hip surgeon Did you discuss the management of the patient with other professionals (professionals i.e. , PA, RESEARCH PHYSIOLOGIST, lab, RT, psych nurse, social services, wellness health coach, teacher, chief human resources officer, manager of case)? Give summary @ -No Was critical care preformed (if so, how long)? @ -No Undiagnosed new problem with uncertain prognosis? @ -No Drug Therapy requiring intensive monitoring for toxicity (Heparin, Nitro, Insulin, Cardizem)? @ -No Were any procedures done? @ -No Diagnosis/symptom? Acute, or Chronic, or Acute on Chronic? Uncomplicated (without systemic symptoms) or Complicated (systemic symptoms)? @ -Hip pain Side effects of treatment? @ -No Exacerbation, Progression, or Severe Exacerbation? @ -No Poses a threat to life or bodily function? How? (Chest pain, [place], [place], pneumonia, PE, COPD, DKA, ARF, appy, cholecystitis, CVA, Diverticulitis, Homicidal, Suicidal, threat to staff... and all critical care pts) @ -yes Disposition Clinical Impression: Hip pain Disposition: HOME SELF-CARE Condition: Fair Prescriptions: oxyCODONE-APAP 10-325MG [Percocet 10-325 mg] 1 tab PO Q4HR PRN 3 Days #18 tab PRN Reason: Pain Is patient prescribed a controlled substance at d/c from ED?: Yes If prescribed controlled substance>3 days was MAPS reviewed?: Prescribed <3 Days Referrals: Brock Gonsalves DO [Doctor of Osteopathic Medicine] - 1-2 days Time of Disposition: 12:20
--- NOTE | 2025-06-28 10:49 | XR ---
EXAMINATION TYPE: XR Hip Complete LT DATE OF EXAM: 06/28/2025 COMPARISON: NONE CLINICAL INDICATION: Female, 84 years old with history of hip pain; TECHNIQUE: 2 views submitted FINDINGS: Mild hypertrophic hip arthropathy. Generalized demineralization. Calcification the pelvis is nonspeci fic possibly related to uterine fibroid. Additional vascular calcifications noted. Mild SI joint arth ropathy. Degenerative change of the spine. IMPRESSION: 1. 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 [facility], , 06/28/2025 10:46 AM
[2025-06-28 10:52] VITALS: TEMP 98
[2025-06-28] MEDS: ONDANSETRON 4 MG/2 ML VIAL IVP STA (10:52)
[2025-06-28] MEDS: MORPHINE SULFATE 4 MG/ML SYRINGE IVP PRN (10:52)
[2025-06-28] MEDS: DEXAMETHASONE SOD PHOSPHATE 10 MG/ML 1 ML VIAL IM STA (12:21)
[2025-06-28 12:42] VITALS: BP 142/86; PULSE 82
== END 2025-06-28 12:40 | disposition home or self-care (01) ==
LOC: EC 09:13
DX: M25.552 Pain in left hip (principal); Z88.2 Allergy status to sulfonamides; Z91.09 Other allergy status, other than to drugs and biological substances; Z88.8 Allergy status to other drugs, medicaments and biological substances
CPT/HCPCS: 73502; 99284; 96374; 96375; 96372; J2270; J1100; J2405